=== PATIENT | female | born 1985 | race Caucasian/White ===

== ENCOUNTER 2025-01-27 14:46 | Emergency (ER) | payer BC ==
[2025-01-27] MEDS: Ondansetron 4 MG/2 ML SDV IVPUSH ONE (15:19)
[2025-01-27 15:20] LABS: BASOPHILS ABSOLUTE AUTO 0.0 K/mm3 (0.0-0.2); BASOPHILS PERCENT AUTO 0.8 % (0.0-1.0); EOSINOPHILS ABSOLUTE AUTO 0.1 K/mm3 (0.0-0.4); EOSINOPHILS PERCENT AUTO 1.1 % (0.0-6.0); IMMATURE GRAN ABSOLUTE AUTO 0.01 K/mm3 (0.00-0.05); IMMATURE GRAN PERCENT AUTO 0.2 % (0.0-0.4); LYMPHOCYTES ABSOLUTE AUTO 2.1 K/mm3 (1.0-4.8); LYMPHOCYTES PERCENT AUTO 38.8 % (24.0-44.0); MEAN PLATELET VOLUME 10.0 fl (9.4-12.3); MONOCYTES ABSOLUTE AUTO 0.4 K/mm3 (0.0-0.8); MONOCYTES PERCENT AUTO 7.2 % (0.0-8.0); NEUTROPHILS ABSOLUTE AUTO 2.8 K/mm3 (1.8-7.7); NEUTROPHILS PERCENT AUTO 51.9 % (41.0-71.0); NRBC ABSOLUTE 0.00 (0.00-0.02); NRBC PERCENT 0.0 % (0.0-0.2); PLATELET COUNT,PLT 277 K/mm3 (150-400); RED BLOOD CELL COUNT 3.70 M/mm3 (4.10-5.30); WHITE BLOOD CELL COUNT,WBC 5.29 K/mm3 (3.9-11.3)
[2025-01-27] MEDS: Sodium Chloride 0.9% 10 ML Syringe FLUSH PRN (15:21)
[2025-01-27 15:35] LABS: A/G RATIO 1.6 (1-2); ALANINE AMINOTRANSFERASE,ALT 108 U/L (14-59); ASPARTATE AMNIOTRANSFERASE,AST 37 U/L (15-37); BILIRUBIN TOTAL 1.2 mg/dL (0.2-1.0); BLOOD UREA NITROGEN,BUN 4 mg/dL (7-18); CARBON DIOXIDE,CO2 25 mEq/L (21-32); CHLORIDE,CL 110 mEq/L (98-107); CREATININE 0.8 mg/dL (0.55-1.02); EST CRCL DRUG DOSING (CG) 71.95 mL/min; ESTIMATED GFR 97 mL/min (>60); GLUCOSE RANDOM 88 mg/dL (70-99); POTASSIUM,K 4.3 mEq/L (3.5-5.1); PROTEIN TOTAL,TP 6.8 g/dl (6.4-8.2); SODIUM,NA 145 mEq/L (136-145); TROPONIN I HIGH SENSITIVITY 5 pg/mL (<=51)
[2025-01-27] MEDS ORDERED: Naloxone 0.4 MG/ML SDV IVPUSH PRN (16:07)
[2025-01-27] MEDS: Iopamidol 612 MG/ML 100 ML Bottle IVPUSH ONE (16:18)
[2025-01-27] MEDS: Sodium Chloride 0.9% 10 ML Syringe FLUSH ONE (16:18)
[2025-01-27] MEDS: Alum Hydrox/Mag Hydrox/Simeth 30 ML, Lidocaine 2% 15 ML PO ONE (16:40)
[2025-01-27] MEDS: Magnesium Citrate Solution 296 ML Bottle PO ONE (17:37)
[2025-01-27 19:04] LABS: APPEARANCE,URINE CLEAR (Clear); GLUCOSE,URINE NEGATIVE (Negative); OCCULT BLOOD,URINE NEGATIVE (Negative)
[2025-01-27 20:05] VITALS: BP 122/94; PULSE 75
== END 2025-01-27 19:55 | disposition home or self-care (01) ==
LOC: JD.ED 14:46
DX: K52.9 Noninfective gastroenteritis and colitis, unspecified (principal); K59.00 Constipation, unspecified; Z91.0110 Allergy to milk products, unspecified; Z79.899 Other long term (current) drug therapy
CPT/HCPCS: 36415; 74177; 80053; 81003; 83690; 84484; 84703; 85025; 86140; 93005; 96361; 96374; 96375; 99284; A9270; J2405; J3490; J7030; Q9967; J1171

== ENCOUNTER 2025-02-09 08:02 | Day surgery (SDC) | payer BC ==
[~2025-02-09 08:02] MED LIST: Sodium Chloride 0.9% 10 ML Syringe FLUSH PRN; Sodium Chloride 0.9% 10 ML Syringe FLUSH SCH
[2025-02-09] MEDS: Lactated Ringers 1,000 ML IV SCH (08:45)
[2025-02-09] MEDS ORDERED: propofoL 500 MG/50 ML 50 ML ONE (09:20)
[2025-02-09] MEDS ORDERED: Lactated Ringers 1,000 ML ONE (09:26)
[2025-02-09] MEDS ORDERED: Propofol 200 MG/20 ML SDV ONE (09:46)
[2025-02-09 11:24] VITALS: BP 116/70; PULSE 66
== END 2025-02-09 11:15 | disposition home or self-care (01) ==
LOC: JD.SDS 08:02
PROVIDERS: ATTEND Surgery
DX: K29.80 Duodenitis without bleeding (principal); K29.71 Gastritis, unspecified, with bleeding; K31.A0 Gastric intestinal metaplasia, unspecified; K31.89 Other diseases of stomach and duodenum; K63.89 Other specified diseases of intestine; K52.9 Noninfective gastroenteritis and colitis, unspecified; K44.9 Diaphragmatic hernia without obstruction or gangrene; K21.9 Gastro-esophageal reflux disease without esophagitis; Z88.8 Allergy status to other drugs, medicaments and biological substances; Z91.09 Other allergy status, other than to drugs and biological substances; Z87.891 Personal history of nicotine dependence; Z79.899 Other long term (current) drug therapy
CPT/HCPCS: 43239; 45380; C9777; J2003; J2704; J7120; 00813